=== PATIENT | male | born 1950 | race Hispanic/Latino ===

== ENCOUNTER → 2022-04-01 | Outpatient (CLI) | payer OTHER, MEDICARE | END | disposition home or self-care (01) | LOC: SHCH 09:36 | PROVIDERS: ATTEND Internal Medicine Cardiovascular Disease | DX: I42.9 Cardiomyopathy, unspecified (principal) | CPT/HCPCS: 93306 ==

== ENCOUNTER 2022-06-11 07:06 | Day surgery (SDC) | payer OTHER, MEDICARE ==
[2022-06-07 11:48] LABS: BASOPHILS % (AUTO) 0.2 % (0.0-5.0); EOSINOPHILS % (AUTO) 1.7 % (0.0-8.0); HEMATOCRIT 41.6 % (42-54); LYMPHOCYTES % (AUTO) 32.8 % (21.0-51.0); MEAN CORPUSCULAR HEMOGLOBIN 31.5 pg (27.0-33.0); MEAN CORPUSCULAR HGB CONC 34.1 g/dL (32.0-36.0); MEAN CORPUSCULAR VOLUME 92.2 fL (79-99); MONOCYTES % (AUTO) 8.5 % (3.0-13.0); NEUTROPHILS % (AUTO) 56.6 % (40.0-77.0); PLATELET COUNT (AUTO) 143 K/uL (130-400); RED BLOOD CELL COUNT(AUTO) 4.51 MIL/uL (4.50-6.20); RED CELL DISTRIBUTION WIDTH 12.8 % (11.0-15.5); WHITE BLOOD COUNT (AUTO) 5.2 K/uL (4.8-10.8)
[2022-06-07 12:03] LABS: ALBUMIN 3.8 g/dL (3.5-5.0); BILIRUBIN,DIRECT 0.1 mg/dL (0.0-0.3); CREATININE 0.7 mg/dL (0.5-1.5); POTASSIUM 3.9 mmol/L (3.5-5.1); TOTAL PROTEIN, SERUM 7.1 g/dL (6.0-8.3)
[2022-06-07 12:12] VITALS: BP 138/64
[~2022-06-11] VITALS: Ht 157.5 cm; Wt 56.2 kg
[2022-06-11] VITALS (19 sets, daily range): BP systolic 128–173; BP diastolic 55–72
[~2022-06-11 07:06] MED LIST: ATOR40TA69 PO; CLOP75TA32 PO; LISI20TA24 PO; METO-391 PO
[2022-06-11] MEDS ORDERED: LACTATED RINGERS 1000ML 1,000 ML IV ONE (08:31)
[2022-06-11] MEDS: CEFAZOLIN SODIUM 2 GM VIAL ONE ×2 (08:35→10:55)
[2022-06-11] MEDS ORDERED: BUPIVACAINE/PF 0.25% 30ML VIAL IJ ONE (10:44)
[2022-06-11] MEDS ORDERED: LIDOCAINE PF 100MG/5ML (2%) SYRINGE 5ML ONE (10:46)
[2022-06-11] MEDS ORDERED: ROCURONIUM 10MG/1ML SYR 10 MG/ML ML ONE (10:47)
[2022-06-11] MEDS ORDERED: FENTANYL CITRATE PF 50 MCG/1 ML 2ML VIAL ONE (10:47)
[2022-06-11] MEDS ORDERED: PROPOFOL 10 MG/ML 20ML VIAL IV ONE (10:47)
[2022-06-11] MEDS ORDERED: ROPIVACAINE 0.5% 5MG/ML 30ML IJ ONE ×2 (11:20→11:31)
[2022-06-11] MEDS ORDERED: 0.9%NACL 10ML VIAL ONE (11:20)
[2022-06-11] MEDS ORDERED: ONDANSETRON 4MG INJ ONE (11:39)
[2022-06-11] MEDS ORDERED: NEOSTIGMINE 5MG/5ML SYR IV ONE (11:40)
[2022-06-11] MEDS ORDERED: GLYCOPYRROLATE 1 MG/5 ML SYRINGE ONE (11:40)
[2022-06-11] MEDS ORDERED: HYDRALAZINE 20MG/ML VIAL ONE (12:24)
[2022-06-11] MEDS ORDERED: MEPERIDINE-PF 25 MG/ML SYG ONE (12:48)
[2022-06-11] MEDS ORDERED: TRAMADOL HCL 50 MG TABLET PO ONE (14:00)
[2022-06-11] MEDS ORDERED: TRAMADOL HCL 50 MG TABLET ONE (14:00)
[2022-06-16] MEDS ORDERED: METH-811 PO (23:59)
[2022-06-16] MEDS ORDERED: DOCU100C33 PO (23:59)
[2022-06-18] MEDS ORDERED: TAMS-1 PO (16:02)
== END 2022-06-11 14:35 | disposition home or self-care (01) ==
LOC: DAH 07:06
PROVIDERS: ATTEND Surgery
DX: K40.90 Unilateral inguinal hernia, without obstruction or gangrene, not specified as recurrent (principal); Z20.822 Contact with and (suspected) exposure to COVID-19; D17.6 Benign lipomatous neoplasm of spermatic cord; I10 Essential (primary) hypertension; E78.00 Pure hypercholesterolemia, unspecified; Z86.73 Personal history of transient ischemic attack (TIA), and cerebral infarction without residual deficits; Z98.890 Other specified postprocedural states
CPT/HCPCS: 80076; 80048; 85025; 87426; 36415; 93005; 49505; 64425; 71045; 76942; A6260; A4663; J7120 ×2; A4452; A4344; J3010; J3490 ×2; J2710; J2001; J0360; J2704; J2405; J2175; J2795 ×2; J0690; A4649; A4930; A4215; A4223; A4222; A4221

== ENCOUNTER 2022-06-15 07:59 | Emergency (ER) | payer OTHER, MEDICARE ==
[~2022-06-15] VITALS: Ht 162.6 cm; Wt 68.0 kg
[2022-06-15] MEDS ORDERED: ACETAMINOPHEN 500 MG TABLET ONE (08:12)
[2022-06-15 08:46] LABS: APPEARANCE,URINE CLOUDY (CLEAR); BILIRUBIN,URINE NEGATIVE (NEGATIVE); COLOR,URINE YELLOW (YELLOW); GLUCOSE, URINE (UA) NEGATIVE (NEGATIVE); KETONES,URINE 20 mg/dL (NEGATIVE); LEUKOCYTE ESTERASE ,URINE 500 Leu/uL (NEGATIVE); NITRATE,URINE NEGATIVE (NEGATIVE); OCCULT BLOOD,URINE LARGE (NEGATIVE); PROTEIN,URINE 50 mg/dL (NEGATIVE); UROBILINOGEN,URINE 0.2 mg/dL (0.2-1.0)
[2022-06-15 08:46] LABS: BASOPHILS % (AUTO) 0.1 % (0.0-5.0); HEMATOCRIT 39.2 % (42-54); LYMPHOCYTES % (AUTO) 2.8 % (21.0-51.0); MEAN CORPUSCULAR HEMOGLOBIN 31.3 pg (27.0-33.0); MEAN CORPUSCULAR HGB CONC 34.9 g/dL (32.0-36.0); MEAN CORPUSCULAR VOLUME 89.5 fL (79-99); MONOCYTES % (AUTO) 1.6 % (3.0-13.0); NEUTROPHILS % (AUTO) 95.1 % (40.0-77.0); PLATELET COUNT (AUTO) 103 K/uL (130-400); RED BLOOD CELL COUNT(AUTO) 4.38 MIL/uL (4.50-6.20); RED CELL DISTRIBUTION WIDTH 12.5 % (11.0-15.5); WHITE BLOOD COUNT (AUTO) 8.5 K/uL (4.8-10.8)
[2022-06-15 08:53] LABS: POTASSIUM 3.4 mmol/L (3.5-5.1)
[2022-06-15 08:54] LABS: INR 1.15 (0.85-1.15); PROTHROMBIN TIME 12.4 SEC (9.6-11.6)
[2022-06-15 08:56] LABS: PARTIAL THROMBOPLASTIN TIME 23.4 SEC (26.3-35.5)
[2022-06-15 08:58] LABS: ALBUMIN 3.1 g/dL (3.5-5.0); TOTAL PROTEIN, SERUM 6.5 g/dL (6.0-8.3)
[2022-06-15 08:59] LABS: BACTERIA,URINE RARE /HPF (None Seen); MUCUS,URINE RARE LPF (None Seen); RBC,URINE 26-50 /HPF (0-1); SQUAMOUS EPITHELIAL CELL,UR RARE /HPF (0-2); WBC,URINE TNTC /HPF (0-1)
[2022-06-15] MEDS ORDERED: ACETAMINOPHEN 500 MG TABLET PO ONE (09:00)
[2022-06-15] MEDS ORDERED: 0.9%NACL 1000ML 1,000 ML IV ONE (09:00)
[2022-06-15] MEDS ORDERED: MACR100 PO (10:16)
[2022-06-15 10:27] VITALS: BP 108/52
[2022-06-15] MEDS ORDERED: NITROFURANTOIN MONOHYD/M-CRYST 100 MG CAPSULE PO ONE (10:30)
[2022-06-15] MEDS ORDERED: CEFTRIAXONE 1G VIAL IVP ONE (10:30)
[2022-06-16] MEDS ORDERED: METH-811 PO (23:59)
[2022-06-16] MEDS ORDERED: DOCU100C33 PO (23:59)
[2022-06-18] MEDS ORDERED: TAMS-1 PO (16:02)
== END 2022-06-15 10:52 | disposition home or self-care (01) ==
LOC: EDH 07:59
DX: N39.0 Urinary tract infection, site not specified (principal); R50.9 Fever, unspecified; I10 Essential (primary) hypertension
CPT/HCPCS: 99283; 96374; 96361; 82550; 84484; 80053; 85025; 85610; 85730; 87040 ×2; 87077 ×2; 87088; 87186 ×2; 83605; 81001; 36415; J7030; J0696

== ENCOUNTER → 2023-08-10 | Outpatient (CLI) | payer OTHER, MEDICARE ==
[~2023-08-10] MED LIST changes: +DOCU100C33 PO; +METH-811 PO; +TAMS-1 PO
== END | disposition home or self-care (01) ==
LOC: SHCH 13:17
PROVIDERS: ATTEND Internal Medicine Cardiovascular Disease
DX: I08.8 Other rheumatic multiple valve diseases (principal)
CPT/HCPCS: 93306

== ENCOUNTER → 2024-06-06 | Outpatient (CLI) | payer OTHER, MEDICARE ==
--- NOTE | 2024-06-05 10:58 | EKG ---
[facility] Test Date: 2024-06-05 Test Time: 10:34:07 Pat Name: STANLEY RAMON Department: [facility] Room: Gender: M Thrasher Feeder: [id number] : 1950 Requested By: ALAN VOGT Order Number: [id number] Reading MD: Kyler Porras Measurements Intervals Conger Rate: 54 P: 64 NM: 228 QRS: -10 QRSD: 114 T: 260 QT: 493 QTc: 468 Interpretive Statements Sinus rhythm Prolonged NM interval LVH with IVCD and secondary repol abnrm Compared to ECG 06/07/2022 11:53:24 First degree AV block now present Intraventricular conduction delay now present Early repolarization now present T-wave abnormality no longer present Electronically Signed On 06-06-2024 07:03:07 CDT by Kyler Porras Please click the below link to view image of tracing.
[~2024-06-06] MED LIST changes: +AMIO400T4 PO; -DOCU100C33 PO; -LISI20TA24 PO; +LISI40TA9 PO; -METH-811 PO; -METO-391 PO; +METO-409 PO; -TAMS-1 PO
--- NOTE | 2024-06-06 21:02 | HMCSR ---
APPROVED REPORT EXAM: Two-dimensional and M-mode echocardiogram with Doppler and color Doppler. INDICATION ICD: Non-rheumatic aortic valve regurgitation I35.1 2D Dimensions RVDd4.2 cmLVEF(%)33.2 (>50%)LVED Vol(simp.)204.3 mL IVSd1.0 (0.7-1.1cm)FS(%)16 %LVES Vol(simp.)146.8 mL LVDd6.0 (3.8-5.6cm)LA (2D)4.1 (1.6-4.0cm)LVEF(%, simp.)28 % PWd1.1 (0.7-1.1cm)Ao Root(2D)3.7 (2.0-3.7cm)LA ESV INDEX (BP)45.70 mL/m2 LVDs5.0 (2.5-4.0cm)LVOT diam2.3 (1.8-2.4cm) IVC diam1.5 cm M-Mode Dimensions EPSS2.4 cm LA (MM)4.6 (1.6-4.0cm) Ao Root(MM)3.9 (2.0-3.7cm) Aortic Valve AoV Vmax1.9 m/Sabrina Peak GR13.9 mmHgLVOT Vmax1.1 m/s AoV VTI0.4 mAo Mean GR7.3 mmHgLVOT VTI0.29 m IVAN (VMAX)3.1 cm2Al P1/2T364 msAVA (VTI) 3.1 cm2 Mitral Valve MV E Vmax32.5 cm/sDECEL Nkqq176 ms MV A Vmax72.6 cm/sP 1/2 T84 ms E/A ratio0.4MVA (PHT)2.6 cm2 TDI E/E' Medial8.1 Medial E' Peak V4.00 cm/s Pulmonary Valve PV Vmax0.9 m/s Tricuspid Valve TR Vmax2.4 m/sRVSP20.7 mmHg TR Peak GR24.3 mmHg Left Ventricle The left ventricle is moderately dilated. Severe global hypokinesis. Mild concentric left ventricular hypertrophy. LVEF is 25-30%. The left ventricular diastolic function is indetermate. Right Ventricle The right ventricle is normal size. The right ventricular systolic function is normal. Atria The left atrium size is normal. The right atrium size is normal. Aortic Valve The aortic valve is mildly sclerotic. Moderate eccentric aortic regurgitation, with posteriorly direc jordan jet. AR pressure 1/2 time is 412 ms. There is no aortic valvular stenosis. Mitral Valve The mitral valve is normal in structure. Mitral regurgitation is mild. There is no mitral valve steno sis. Tricuspid Valve The tricuspid valve is normal in structure. There is moderate tricuspid valve regurgitation noted. Pulmonic Valve The pulmonary valve is normal in structure. There is no pulmonic valvular regurgitation. Great Vessels The aortic root is normal in size. The IVC is normal in size and collapses >50% with inspiration. Pericardium There is no pericardial effusion. Conclusion The left ventricle is moderately dilated. Mild concentric left ventricular hypertrophy. Severe global hypokinesis. LVEF is 25-30%. The left ventricular diastolic function is indetermate. The aortic valve is mildly sclerotic. Moderate eccentric aortic regurgitation, with posteriorly directed jet. AR pressure 1/2 time is 412 ms. There is no aortic valvular stenosis. There is moderate tricuspid valve regurgitation noted. There is no pericardial effusion.
== END | disposition home or self-care (01) ==
LOC: SHCH 08:44
PROVIDERS: ATTEND Internal Medicine Cardiovascular Disease
DX: I08.3 Combined rheumatic disorders of mitral, aortic and tricuspid valves (principal); I11.9 Hypertensive heart disease without heart failure; I35.1 Nonrheumatic aortic (valve) insufficiency
CPT/HCPCS: 36415; 71045; 80048; 81001; 83880; 85025; 85610; 85730; 93005; 93306

== ENCOUNTER 2024-06-07 05:40 | Day surgery (SDC) | payer OTHER, MEDICARE ==
[2024-06-05 10:45] LABS: BASOPHILS # (AUTO) 0.01 K/uL (0.00-0.20); BASOPHILS % (AUTO) 0.2 % (0.0-5.0); EOSINOPHILS # (AUTO) 0.03 K/uL (0.00-0.70); EOSINOPHILS % (AUTO) 0.5 % (0.0-8.0); HEMATOCRIT 43.9 % (42-54); IMMATURE GRANULOCYTE ABSOLUTE 0.03 K/uL (0-1); LYMPHOCYTES # (AUTO) 1.4 K/uL (1.0-4.8); LYMPHOCYTES % (AUTO) 24.5 % (21.0-51.0); MEAN CORPUSCULAR HEMOGLOBIN 31.4 pg (27.0-33.0); MEAN CORPUSCULAR HGB CONC 34.4 g/dL (32.0-36.0); MEAN CORPUSCULAR VOLUME 91.3 fL (79-99); MONOCYTES # (AUTO) 0.5 K/uL (0.1-1.0); MONOCYTES % (AUTO) 8.9 % (3.0-13.0); NEUTROPHILS # (AUTO) 3.7 K/uL (1.8-7.7); NEUTROPHILS % (AUTO) 65.4 % (40.0-77.0); PLATELET COUNT (AUTO) 201 K/uL (130-400); RED BLOOD CELL COUNT(AUTO) 4.81 MIL/uL (4.50-6.20); RED CELL DISTRIBUTION WIDTH 13.1 % (11.0-15.5); WHITE BLOOD COUNT (AUTO) 5.7 K/uL (4.8-10.8)
[2024-06-05 10:54] LABS: INR 1.07 (0.85-1.15); PROTHROMBIN TIME 11.3 SEC (9.6-11.6)
[2024-06-05 10:55] LABS: PARTIAL THROMBOPLASTIN TIME 28.5 SEC (26.3-35.5)
[2024-06-05 11:00] LABS: APPEARANCE,URINE CLEAR (CLEAR); BILIRUBIN,URINE NEGATIVE (NEGATIVE); COLOR,URINE YELLOW (YELLOW); GLUCOSE, URINE (UA) NEGATIVE (NEGATIVE); KETONES,URINE NEGATIVE (NEGATIVE); LEUKOCYTE ESTERASE ,URINE NEGATIVE Leu/uL (NEGATIVE); NITRATE,URINE NEGATIVE (NEGATIVE); PH,URINE 5.5 (5.0-8.0); PROTEIN,URINE 10 mg/dL (NEGATIVE); UROBILINOGEN,URINE 0.2 mg/dL (0.2-1.0)
[2024-06-05 11:03] LABS: ADD UA MICROSCOPIC YES
[2024-06-05 11:07] LABS: POTASSIUM 4.8 mmol/L (3.5-5.1)
[2024-06-05 11:12] LABS: B-TYPE NATRIURETIC PEPTIDE 358 pg/mL (0-100)
[2024-06-05 11:18] VITALS: BP 152/59; PULSE 58; RESP 18; TEMP 98
[2024-06-05 11:24] LABS: MUCUS,URINE FEW LPF (None Seen); SQUAMOUS EPITHELIAL CELL,UR RARE /HPF (0-2)
[2024-06-07] VITALS (11 sets, daily range): BP systolic 133–167; BP diastolic 46–56; PULSE 53–58; RESP 13–19; TEMP 97.3–97.8
[~2024-06-07] VITALS: Ht 408.4 cm; Wt 74.1 kg
[2024-06-07] MEDS: 0.9%NACL 1000ML 1,000 ML IV SCH (06:36)
[2024-06-07] MEDS ORDERED: LIDOCAINE HCL 400MG/20ML VIAL ONE (07:06)
[2024-06-07] MEDS ORDERED: IOHEXOL 350 MG/ML 100ML INFUS..BTL IV ONE (07:06)
[2024-06-07] MEDS ORDERED: IOHEXOL-350 50ML VIAL IV ONE ×2 (07:06→07:51)
[2024-06-07] MEDS ORDERED: HEParin 10,000 UNIT/10ML (1,000 UNIT/ML) VIAL ONE (07:06)
[2024-06-07] MEDS ORDERED: NITROGLYCERIN 50MG VIAL ONE (07:07)
[2024-06-07] MEDS ORDERED: HEParin-NS 1,000 UNIT/500 ML 1,000 ML IV ONE (07:07)
[2024-06-07] MEDS ORDERED: HEParin-NS 1,000 UNIT/500 ML 500 ML IV ONE ×2 (07:08→08:46)
[2024-06-07] MEDS ORDERED: FENTanyl CITRate PF 50 MCG/1 ML 2ML VIAL ONE (07:48)
[2024-06-07] MEDS ORDERED: 0.9% NACL 500ML IV.SOLN 500 ML IV SCH (10:00)
--- NOTE | 2024-06-07 10:11 | PRN ---
DATE OF PROCEDURE: 06/07/2024 PROCEDURE PERFORMED: RIGHT AND LEFT HEART CATHETERIZATION, AORTIC ROOT INJECTION, LV-GRAM, RIGHT AND LEFT SELECTIVE CORONARY ANGIOGRAM, RIGHT COMMON FEMORAL ANGIOGRAM, PERCLOSE SUTURE CLOSURE OF THE RIGHT COMMON FEMORAL ARTERY, AND CONSCIOUS SEDATION HEALTH CARE COACH: Jace Vogt MD, [facility] INDICATION: Aortic insufficiency, cardiomyopathy with LVEF of 25-30% by 2D echocardiogram 06/06/2024 (etiology unknown), question of possible anomalous right coronary artery by prior CT angiogram, nonsustained VT and frequent PVCs PROCEDURE NOTE: After informed consent was obtained the patient was prepped and draped in the usual sterile fashion. A 6 [place] arterial sheath was inserted in the right femoral artery using ultrasound guidance with a micropuncture technique, a seven [place] venous sheath with hemostatic valve was inserted in the right common femoral vein with ultrasound guidance and micropuncture technique without difficulty. This was performed after fluoroscopic identification of bony landmarks to facilitate a more accurate puncture of the right common femoral artery. The arterial sheath was aspirated and flushed. A 7 [place] S tipped [place] catheter was advanced to the right heart with pressure measurements in the RA, RV, PA, and pulmonary capillary wedge positions using fluoroscopic guidance and balloon floatation. Simultaneous pressure measurements of LVEDP and pulmonary capillary wedge pressure were obtained followed by cardiac outputs. A 6 [place] pigtail catheter was then advanced over a J-tipped guidewire to the ascending aorta and was prolapsed into the left ventricle. The catheter was asp irated and flushed and pressure measurements were obtained. A left ventriculogram was then performed in a 30 ROSS projection. A pullback procedure was then performed, followed by an aortic root injection. This catheter was then removed over a J-tipped guidewire. A 6F JL-4 was then advanced to the ascending aorta over a J-tipped guidewire, was aspirated and flushed, and was used for selective left coronary angiograms in multiple obliquities. A JR-4 was advanced in a similar fashion to the ascending aorta over a J-tipped guidewire and was used for selective right coronary angiograms in multiple obliquities with findings as outlined below. A right common femoral angiogram was performed to assess suitability for Perclose suture closure and the Perclose device was deployed in standard fashion. Perclose suture closure was successful without bleeding or hematoma. The patient tolerated the procedure well and was returned to the holding area in stable condition. FINDINGS: RIGHT HEART CATHETERIZATION: RA pressure was 7 mm of mercury on the A-wave and 6 mm of mercury on the V-wave. Mean RA pressure was 4 mm of mercury. RV pressure was 29/5 mm of mercury PA pressure was 30/12 mm of mercury Mean PA pressure was 20 mm of mercury Pulmonary capillary wedge pressure was 15 mm of mercury on the A-wave, 13 mm of mercury on the V-wave, and 11 mm of mercury mean pulmonary capillary wedge pressure Cardiac output was 4.3 L/min and cardiac index 2.3 L/min/m. LEFT HEART HEMODYNAMICS: LVEDP was 25 mm of mercury prior to intraventricular nitroglycerin and 18 mm of mercury after intraventricular nitroglycerin. After the LV-gram LVEDP was 20 mm of mercury. There was no aortic valve gradient on pullback procedure. LEFT VENTRICULOGRAM: A left ventriculogram in a 30 degree ROSS projection demonstrated moderate global hypokinesis with an LVEF of 30-35% (34% by single plane ventriculogram). A 2D echo 06/06/2024 demonstrated an LVEF of 25-30% with 28% by Rios's biplane method. CORONARY ANGIOGRAM: LEFT MAIN: The left main coronary was normal. LEFT ANTERIOR DESCENDING: The left anterior descending was large and normal in the proximal 3rd, and had a 30% stenosis at a point of tapering after bifurcation from a large diagonal one branch in the mid 3rd. The ongoing LAD was normal distally. The diagonal branches were normal and there was a large 1st diagonal branch. LEFT CIRCUMFLEX: The left circumflex was nondominant and had a 30% distal stenosis after the 2nd OM2 branch. The obtuse marginal branches were normal. RAMUS INTERMEDIATE BRANCH: There was no ramus intermediate branch. RIGHT CORONARY ARTERY: The right coronary artery was dominant and had a 20% proximal stenosis but was otherwise normal. The PDA and posterolateral ventricular branches were normal. IMPRESSION: Two to 3+ aortic insufficiency, somewhat difficult to assess due to ascending aortic and LV dilation. 2D echocardiogram 06/06/2024 demonstrated moderate eccentric aortic regurgitation with a posteriorly directed jet and an AR pressure half-time of 412 milliseconds. Dilated cardiomyopathy, presumably due to aortic valve insufficiency. Moderate global hypokinesis with LVEF of 30-35% by left ventriculogram (34% by single plane LV-gram), LVEF of 25-30% by 2D echo 06/06/2024 with biplane Rios EF of 28% (class one indication is LVEF less than 55% if attributable to the aortic insufficiency). LV end systolic dimension 50 mm, LV end-diastolic diameter 60 mm (class 2A indications are an LV end systolic dimension greater than 50 and LV mm, and diastolic dimension of 65-70 mm. LVEF by remote 2D echocardiogram 04/01/2022 was 40-45%. Elevated resting LVEDP of 25 mm of mercury with normal resting pulmonary capillary wedge pressure of 11 mm of mercury Nonobstructive coronary artery disease with 30% mid LAD stenosis, 30% distal LCX stenosis, and 20% proximal RCA stenosis. RECOMMENDATION: A cardiac MRI to assess aortic regurgitant volume and aortic regurgitant fraction would be supportive in assessing severity of regurgitation. Guideline directed medical therapy for cardiomyopathy including transitioning from lisinopril to Entresto, continued metoprolol succinate, consideration of addition of SGLT2 inhibitor. CT surgical consultation after cardiac MRI. COMPLICATIONS OF PROCEDURE: None, the patient tolerated the procedure well and was returned to his room in stable condition. HEMOSTASIS: Perclose suture closure had suboptimal closure and a D Stat and manual pressure resulted in excellent hemostasis without hematoma. ESTIMATED BLOOD LOSS: Less than 10 mL. CONTRAST TOTAL: 175 mL. JACE VOGT MD Jun 07, 2024 10:11
--- NOTE | 2024-06-25 09:51 | HMCIMG ---
CHEST 1VW HISTORY: Preop COMPARISON: 06/18/2002 FINDINGS: A frontal projection of the chest was obtained. No acute pulmonary infiltrates is seen. The heart is normal in size. Prominent vascular markings are seen. Degenerative changes are seen. No evidence of aortic calcification is seen. IMPRESSION: 1. No acute pulmonary infiltrate is seen.
== END 2024-06-07 14:00 | disposition home or self-care (01) ==
LOC: DAH 05:40
PROVIDERS: ATTEND Internal Medicine Cardiovascular Disease
DX: I35.1 Nonrheumatic aortic (valve) insufficiency (principal); I25.10 Atherosclerotic heart disease of native coronary artery without angina pectoris; I47.20 Ventricular tachycardia, unspecified; I42.9 Cardiomyopathy, unspecified; I10 Essential (primary) hypertension; E78.5 Hyperlipidemia, unspecified; Q24.5 Malformation of coronary vessels; I47.29 Other ventricular tachycardia; Z86.73 Personal history of transient ischemic attack (TIA), and cerebral infarction without residual deficits; Z79.01 Long term (current) use of anticoagulants; Z79.899 Other long term (current) drug therapy
CPT/HCPCS: 80048; 83880; 85025; 85610; 85730; 81001; 36415; 71045; 93005; 93460; 93567; 82948; C1894 ×3; C1760; J3010; J3490 ×2; J7030; J1644 ×3; Q9967 ×3; A4215; A4222; A4221; A4663; A4216; A4606; Q9965 ×2; A4223 ×3; 96360; 96361; 99156; 99157

== ENCOUNTER → 2024-06-14 | Outpatient (CLI) | payer OTHER, MEDICARE ==
[~2024-06-14] MED LIST changes: -LISI40TA9 PO
--- NOTE | 2024-06-14 16:18 | HMCIMG ---
US SOFT TISSUE GROIN REASON: evaluate for pseudoaneurysm. COMPARISON: None TECHNIQUE: Right groin ultrasound study was performed. FINDINGS: No evidence of pseudoaneurysm is seen. No hematoma is seen at this time. IMPRESSION: No acute findings.
== END | disposition home or self-care (01) ==
LOC: RAH 15:17
PROVIDERS: ATTEND Internal Medicine Cardiovascular Disease
DX: I72.9 Aneurysm of unspecified site (principal)
CPT/HCPCS: 76882